=== PATIENT | female | born 1965 | race Caucasian/White ===

== ENCOUNTER → 2022-08-29 08:28 | Outpatient (BNVA) | payer OTHER, SELFPAY | PROVIDERS: PCP Family Medicine; Visit Provider Nurse Practitioner Family | DX: H53.122 Transient visual loss, left eye (principal); G43.909 Migraine, unspecified, not intractable, without status migrainosus; R51.9 Headache, unspecified; R42 Dizziness and giddiness; M54.2 Cervicalgia | CPT/HCPCS: 99202 ==

== ENCOUNTER 2022-10-17 08:06 | Outpatient (REF) | payer OTHER, SELFPAY ==
--- NOTE | ~2022-10-17 | CT_ITS ---
EXAMINATION: CT ANGIOGRAM HEAD CT ANGIOGRAM NECK CLINICAL INFORMATION: Transient visual loss in the left eye. COMPARISON: None available. TECHNIQUE: Initial noncontrast cost consultant imaging of the head and neck was performed. Noncontrast head CT was also performed. Test bolus sequences followed by intravenous administration 70 mL of Omnipaque 350. Helical imaging was performed in the axial plane from the aortic arch to the skull vertex. Delayed postcontrast imaging of the head was also performed. The data was processed at the generation engineering technologist's workstation for generation of MIP sequences. Angled MIPs and volume rendered reformatted images were also generated at an offline 3D workstation. Stenoses are assessed in accordance with NASCET criteria unless otherwise indicated. This CT examination was performed using dose optimization techniques as appropriate, variously including the following: *Automated exposure control. *Adjustment of mA and/or kV according to patient size (this includes techniques or standardized protocols for targeted exams where dose is matched to indication/reason for exam; i.e. extremities or head). *Use of iterative reconstruction technique. DLP: 2456 mGy-cm FINDINGS: CT Head: There is no evidence of acute intracranial hemorrhage or edematous territorial infarction. Cruz-white matter differentiation is preserved. There is no abnormal attenuation within the brain parenchyma. The ventricles are normal in morphology and size. No evidence for obstructive hydrocephalus. No abnormal mass effect or midline shift. No extra-axial fluid collections. No pathologic intra-axial enhancement or regional oligemia. No acute soft tissue or osseous abnormalities. Mild mucosal thickening of the paranasal sinuses. The mastoid air cells and middle ear cavities are clear. No demonstrated abnormalities of the orbits. CT Neck: The thyroid gland and remaining cervical soft tissues are within normal limits. Straightening of the normal cervical lordosis. Mild degenerative retrolisthesis of C3 on C4. Mild degenerative anterolisthesis of C4 on C5. Advanced degenerative disc disease at C6-C7. Mild to moderate degenerative disc disease at all additional cervical levels. Facet and uncovertebral joint arthropathy leads to osseous encroachment on the neural foramina from C3-C7. CT Upper Chest: Changes of prior median sternotomy. The visualized lung apices and upper mediastinum are within normal limits. Neck CTA: Aortic Arch: Normal contour and caliber with mild calcific atherosclerotic disease. Classic 3 vessel branching pattern of the aortic arch. Great Vessel Origins: No significant stenosis of the branch origins. Right Common Carotid Artery: No focal stenosis or occlusion. Cervical Right Internal Carotid Artery: Mild calcific atherosclerotic disease of the carotid bulb and proximal internal carotid artery without flow-limiting stenosis. Left Common Carotid Artery: No focal stenosis or occlusion. Cervical Left Internal Carotid Artery: Normal opacification without focal stenosis or occlusion. Cervical Right Vertebral Artery: Co-dominant. No focal stenosis or occlusion. Cervical Left Vertebral Artery: Co-dominant. No focal stenosis or occlusion. Brain CTA: Intracranial Internal Carotid Arteries: Mild calcific atherosclerotic disease of the intracranial internal carotid arteries without occlusion or flow-limiting stenosis. Normal opacification of the proximal ophthalmic arteries on limited evaluation. Right Anterior Cerebral Artery: Normal A1 segment. Normal opacification of the distal BALDEV segments. Left Anterior Cerebral Artery: Normal A1 segment. Normal opacification of the distal BALDEV segments. Anterior Communicating Artery: Normal. Right Middle Cerebral Artery: Normal M1 segment of the MCA without focal stenosis or occlusion. Normal arborization of the distal segments. Left Middle Cerebral Artery: Normal M1 segment of the MCA without focal stenosis or occlusion. Normal arborization of the distal segments. Right Vertebral Artery: Normal V4 segment. Normal opacification of the proximal segments of the posterior inferior cerebellar artery. Left Vertebral Artery: Normal V4 segment. Normal opacification of the proximal segments of the posterior inferior cerebellar artery. Basilar Artery: Normal without focal stenosis or occlusion. Normal appearance of the proximal superior cerebellar arteries. Right Posterior Cerebral Artery: Normal P1 segment. Normal opacification of the distal BARREL CAP SETTER segments. Left Posterior Cerebral Artery: Normal P1 segment. Normal opacification of the distal BARREL CAP SETTER segments. Normal opacification of the superior sagittal, straight, transverse, and sigmoid sinuses. CT/CT angio head neck IMPRESSION: 1. No evidence of acute intracranial hemorrhage or edematous territorial infarction. 2. CTA of the head and neck without proximal occlusion or flow-limiting stenosis.
[2022-10-17] MEDS: iohexoL 350 MG/ML 100 ML INFUS..BTL IV (09:29)
[2022-10-20 09:17] LABS: Creatinine POC 0.6 mg/dL (0.5-1.4); GFR POC > 60
== END 2022-10-17 08:07 | disposition home or self-care (01) ==
LOC: HO.CT 08:06
PROVIDERS: Visit Provider Nurse Practitioner Family
DX: R51.9 Headache, unspecified (principal); H53.122 Transient visual loss, left eye; E78.5 Hyperlipidemia, unspecified
CPT/HCPCS: 70496; 70498; 82565; Q9967

== ENCOUNTER 2022-12-08 10:06 | Outpatient (AMB) | payer OTHER, SELFPAY ==
--- NOTE | 2022-12-08 10:20 | A.OFFVIS_ITS ---
Intake Vital Signs 12/08/22 10:35 Height 5 ft 9 in Weight 179 lb 2 oz BMI 26.4 Pulse 56 Pulse Source Pulse Oximeter Pulse Oximetry (%) 98 Oxygen Delivery Method Room Air Intake Visit Reasons: 3m follow up Dizziness/Neck pain/Headaches-Conf Intake Note: Patient presents for 3 month follow up dizziness, neck pain and headaches. patient states my headaches are much better,Im going to physcial therapy and the vitamins given to me are helping. Web Applications Administrator Required: Yes Web Applications Administrator Name: pharmacist intern ID#[id number] Allergies No Known Allergies Allergy (Verified 12/08/22 10:41) Medication List - Last Reconciled 12/08/22 by GIRISH Galvez aspirin 81 mg PO DAILY atorvastatin 80 mg PO BEDTIME magnesium oxide 400 mg PO BEDTIME 30 days metoprolol succinate ER 25 mg PO DAILY ubrogepant (Ubrelvy) 50 - 100 mg (0.5 - 1 x 100 mg) PO ONCE PRN 30 days warfarin 5 mg PO DAILY HPI HPI Comments History of Present Illness Details 57-yr-old female presents for f/u visit. Pt denies any significant interval medical changes. Pt reports she is no longer having severe bothersome headaches, may have mild headache. She feels Magnesium is helpful. She never received Ubrelvy. She completed PT, which helped her neck pain. She continues to do the exercises. 10/17/22, CT/CT angio head neck IMPRESSION: 1. No evidence of acute intracranial he morrhage or edematous territorial infarction. 2. CTA of the head and neck without pro ximal occlusion or flow-limiting stenosis. [facility] Medical History (Updated 08/31/22 @ 20:38 by GIRISH Galvez) Subclinical hypothyroidism Chronic atrial fibrillation HLD (hyperlipidemia) Surgical History S/P MVR (mitral valve replacement) S/P AVR (aortic valve replacement) Hx of tonsillectomy H/O heart surgery Social History Alcohol intake: never Patient Tobacco Use Status: Never used Tobacco Review of Systems Const All systems reviewed & are unremarkable except as noted in HPI and below Physical Exam Vital Signs: Last Vital Signs Pulse 56 12/08/22 10:35 Pulse Ox 98 10/16/23 10:35 Oxygen Delivery Method Room Air 12/08/22 10:35 BMI result Body Mass Index 26.4 Const General: cooperative and no acute distress Orientation/consciousness: patient oriented x3 HEENT Head: Yes normocephalic Resp Effort & Inspection: normal respiratory effort and able to speak in complete sentences Neuro General: patient oriented x3, gait normal and CN's II-XI intact bilaterally Cognition (Neuro): normal cognition Motor exam (neuro): 5/5 motor strength present throughout Psych Appearance: grossly normal Mental Status: mental status grossly normal Speech and movement: Normal speech and movement present Affect: normal affect Attitude: cooperative Thought process: Normal thought process present Thought content: Normal thought content present Insight: Good insight present (Psych) Judgement: Good judgement present (Psych) Assessment & Plan Assessment & Plan (1) Migraine: Code(s): G43.909 - Migraine, unspecified, not intractable, without status migrainosus (2) Cervicalgia: Code(s): M54.2 - Cervicalgia (3) Transient visual loss of left eye: Code(s): H53.122 - Transient visual loss, left eye Plan 06/2020- Head and neck CT w/o- no acute abnormalities. 01/2022- c-spine XR- multilevel bone and disc degenerative changes- notably more so on right. 10/17/22: CTA head and neck- normal Continue PT exercises. Continue Magnesium 400mg qhs- may help with headaches and cervical muscle tightness. Again trial Ubrogepant 50-100mg at onset of migraine and/or neck pain, MR in 2 hrs (max 200mg per day). May adjunct w/ OTC Tylenol. ? f/u in 6 months or sooner prn. Medications: Refilled ubrogepant (Ubrelvy) take at onset of migraine, may repeat in 2hrs (may take w/ Tylenol) 50 - 100 mg (0.5 - 1 x 100 mg) PO ONCE 30 days PRN 16 tabs 3RF migraine headache Coding Level of Care Code Est Pt Level 4 (19840) Diagnoses Migraine G43.909 Cervicalgia M54.2 Transient visual loss of left eye H53.122
[2022-12-08 10:35] VITALS: PULSE 56; O2SAT 98; BMI 26.4
== END 2022-12-08 11:00 | disposition home or self-care (01) ==
PROVIDERS: PCP Family Medicine; Visit Provider Nurse Practitioner Family
DX: G43.909 Migraine, unspecified, not intractable, without status migrainosus (principal); M54.2 Cervicalgia; H53.122 Transient visual loss, left eye
CPT/HCPCS: 99214

== ENCOUNTER → 2022-12-08 10:06 | Outpatient (BNVA) | payer OTHER, SELFPAY | PROVIDERS: PCP Family Medicine; Visit Provider Nurse Practitioner Family | DX: G43.909 Migraine, unspecified, not intractable, without status migrainosus (principal); M54.2 Cervicalgia; H53.122 Transient visual loss, left eye | CPT/HCPCS: 99212 ==

== ENCOUNTER 2023-06-09 11:02 | Outpatient (AMB) | payer OTHER, SELFPAY ==
--- NOTE | 2023-06-09 11:04 | A.OFFVIS_ITS ---
Intake Vital Signs 06/09/23 11:07 Height 5 ft 9 in Weight 186 lb BMI 27.5 BP 118/74 Blood Pressure Location Rt brachial Position Sitting Pulse 82 Pulse Source Pulse Oximeter Pulse Oximetry (%) 99 Oxygen Delivery Method Room Air Intake Visit Reasons: 6m f/u for dizziness/CROWDER - LVM w/address Intake Note: Patient states she feels better than the first time she came here.she feels much better Allergies No Known Allergies Allergy (Verified 06/09/23 11:08) HPI HPI Comments History of Present Illness Details 57-yr-old female presents for f/u visit. Pt denies any significant interval medical changes. Pt states she is feeling better. She has been swimming, which helps. She may get tired, but takes short rests. Over time, her endurance is improving and needing less rests. She is trying to be active w/ her grandchildren. She is having occasional neck tightness. No headaches. Has not needed to try Ubrelvy yet. No dizziness. She thinks this was r/t her cardiac issues- she has cardiology f/u in June. She did see [facility] recently, who suggested pt stop Aspirin, she states she takes the ASA sometimes. States she has heard differing opinions on whether o not to take ASA- advised to discuss w/her instructor apparel manufacture. REPLACED BY [facility] Medical History (Updated 08/31/22 @ 20:38 by GIRISH Galvez) Subclinical hypothyroidism Chronic atrial fibrillation HLD (hyperlipidemia) Surgical History S/P MVR (mitral valve replacement) S/P AVR (aortic valve replacement) Hx of tonsillectomy H/O heart surgery Social History Alcohol intake: never Patient Tobacco Use Status: Never used Tobacco Physical Exam Vital Signs: Last Vital Signs Pulse 82 06/09/23 11:07 BP 118/74 06/09/23 11:07 Pulse Ox 99 06/09/23 11:07 Oxygen Delivery Method Room Air 06/09/23 11:07 BMI result Body Mass Index 27.5 Const General: cooperative and no acute distress Orientation/consciousness: patient oriented x3 Resp Effort & Inspection: normal respiratory effort and able to speak in complete sentences Neuro General: patient oriented x3 Cranial nerves: Yes CN's II-XII intact bilaterally Cognition (Neuro): normal cognition Psych Appearance: grossly normal Mental Status: mental status grossly normal Speech and movement: Normal speech and movement present Affect: normal affect Attitude: cooperative Assessment & Plan Assessment & Plan (1) Migraine: Code(s): G43.909 - Migraine, unspecified, not intractable, without status migrainosus (2) Dizziness: Code(s): R42 - Dizziness and giddiness Plan Continue regular physical activity. F/u w/ cardiology as scheduled- pt should discuss ASA tx in setting of Warfarin use, as taken together these can increase risk for bleeding. Continue Magnesium 400mg qhs- may help with headaches and cervical muscle tightness. When needed, trial Ubrogepant 50-100mg at onset of migraine and/or neck pain, MR in 2 hrs (max 200mg per day). May adjunct w/ OTC Tylenol. ? f/u in 6 months or sooner prn. Coding Level of Care Code Est Pt Level 3 (11074) Diagnoses Migraine G43.909 Dizziness R42
[2023-06-09 11:07] VITALS: BP 118/74; PULSE 82; O2SAT 99; BMI 27.5
== END 2023-06-09 11:42 | disposition home or self-care (01) ==
PROVIDERS: PCP Family Medicine; Visit Provider Nurse Practitioner Family
DX: G43.909 Migraine, unspecified, not intractable, without status migrainosus (principal); R42 Dizziness and giddiness
CPT/HCPCS: 99213

== ENCOUNTER → 2023-06-09 11:02 | Outpatient (BNVA) | payer OTHER, SELFPAY | PROVIDERS: PCP Family Medicine; Visit Provider Nurse Practitioner Family | DX: G43.909 Migraine, unspecified, not intractable, without status migrainosus (principal); R42 Dizziness and giddiness | CPT/HCPCS: 99212 ==

== ENCOUNTER 2023-12-28 11:26 | Outpatient (AMB) | payer OTHER, SELFPAY ==
[2023-12-28 11:36] VITALS: BP 108/62; PULSE 91; O2SAT 99
--- NOTE | 2023-12-28 11:36 | A.OFFVIS_ITS ---
Vital Signs 12/28/23 11:36 Height 5 ft 9 in BP 108/62 Blood Pressure Location Lt brachial Position Sitting Pulse 91 Pulse Source Pulse Oximeter Pulse Oximetry (%) 99 Oxygen Delivery Method Room Air Intake Visit Reasons: Follow up Conveyor Belt Installer Required: Yes Conveyor Belt Installer Name: cecily [id number] Accompanied by: Self / Same As Patient Allergies No Known Allergies Allergy (Verified 12/28/23 11:38) Medication List - Last Reconciled 12/28/23 by GIRISH Galvez atorvastatin 80 mg PO BEDTIME empagliflozin (Jardiance) 10 mg PO DAILY magnesium oxide 400 mg PO BEDTIME 30 days metoprolol succinate ER 25 mg PO DAILY omeprazole 20 mg PO DAILY sacubitril-valsartan 24-26 mg (Entresto) 1 tab PO BID torsemide 60 mg PO .weekly PRN warfarin 5 mg PO DAILY HPI Comments Details: 58-yr-old female presents for f/u visit. Pt denies any significant interval medical changes. Though, she has continued to f/u w/ cardiology who is optimizing her cardiac tx- now on entresto and torsemide. Pt states she is feeling better in terms of her headaches and neck. Has not needed to try Ubrelvy yet She is having occasional neck tightness, maybe triggered by laying in certain positions. She is compliant w/ Magnesium qhs. She is trying to walk regularly. Has seen urgent care for low back pain after waking up one day for increased low back pain/tenderness/muscle spasm. Was given cyclobenzaprine which did help reduce the muscle tightness but made her sleep for almost a full day. The pain is better, but she feels she has risks for low back spasms- such as bending over at work. Just started PT, and is doing the slow exercises they have taught her so far. She is now swimming very rarely- the pool she was going to, but for some reason it is more diffiuclt to breathe in the pool area during the warmer weather, but typically breathes better there in the colder weather. She is still active with her grandchildren- takes walks. She can be dizzy, feeling quite off-balance triggered by getting up. So now needs to sit up very slowly- and sit for 1-2 minutes before standing up. She can also feel tired. She attributes this to the torsemide and entresto tx. She also had been having leg cramps, so she reduced her torsemide dose from bid to qd, and now prn 2-3 times a week. States her liver lets her know when she needs to take the Torsemide- states her liver becomes heavy, firm to touch, and she has increased SOB on exertion. She weighs herself maybe weekly- previously did daily wts. The leg cramps have since resolved. [facility] Medical History (Updated 08/31/22 @ 20:38 by GIRISH Galvez) Subclinical hypothyroidism Chronic atrial fibrillation HLD (hyperlipidemia) Surgical History S/P MVR (mitral valve replacement) S/P AVR (aortic valve replacement) Hx of tonsillectomy H/O heart surgery Social History Alcohol intake: never Patient Tobacco Use Status: Never used Tobacco Physical Exam Vital Signs: Last Vital Signs Pulse 91 12/28/23 11:36 BP 108/62 12/28/23 11:36 Pulse Ox 99 12/28/23 11:36 Oxygen Delivery Method Room Air 12/28/23 11:36 Const General: cooperative and no acute distress Orientation/consciousness: patient oriented x3 Resp Effort & Inspection: normal respiratory effort and able to speak in complete sentences Neuro Other: Bilateral posterior cervical tightness. No palpable back tenderness. BLE MS 5/5 General: patient oriented x3 Cranial nerves: Yes CN's II-XII intact bilaterally Cognition (Neuro): normal cognition Motor exam (neuro): 5/5 motor strength present throughout Deep tendon reflexes (DTR's): Right patellar reflex intensity grade: 2+ and Left patellar reflex intensity grade: 2+ Psych Appearance: grossly normal Mental Status: mental status grossly normal Speech and movement: Normal speech and movement present Affect: normal affect Attitude: cooperative Assessment & Plan Assessment & Plan (1) Migraine: Code(s): G43.909 - Migraine, unspecified, not intractable, without status migrainosus Category: Medical (2) Dizziness: Code(s): R42 - Dizziness and giddiness Category: Medical Plan F/u w/ cardiology as scheduled- advised pt to update cardiology on how she is taking Torsemide prn. Advised to resume daily weights- discussed this is better method of assessing fluid gain than waiting for physical symptoms. Continue Magnesium 400mg qhs- headaches and cervical muscle tightness. When needed, trial Ubrogepant 50-100mg at onset of migraine and/or neck pain, MR in 2 hrs (max 200mg per day). May adjunct w/ OTC Tylenol. Continue PT. Continue regular physical activity as tolerated. Advsied to notify us if back pain/spasms reoccur. f/u in 6-12 months or sooner prn. Medications: Refilled magnesium oxide may hold for loose stools 400 mg PO BEDTIME 30 days 30 tabs 6RF ubrogepant (Ubrelvy) take at onset of migraine, may repeat in 2hrs (may take w/ Tylenol) 50 - 100 mg (0.5 - 1 x 100 mg) PO ONCE 30 days PRN 16 tabs 3RF migraine headache Scribe Plan - Not visible on output: Reviewed possible medication side effects, including but not limited to drowsiness, dizziness. Coding Level of Care Code Est Pt Level 4 (24504) Diagnoses Migraine G43.909 Dizziness R42
== END 2023-12-28 12:28 | disposition home or self-care (01) ==
PROVIDERS: PCP Family Medicine; Visit Provider Physician Assistant Medical
DX: G43.909 Migraine, unspecified, not intractable, without status migrainosus (principal); R42 Dizziness and giddiness
CPT/HCPCS: 99214

== ENCOUNTER → 2023-12-28 11:26 | Outpatient (BNVA) | payer OTHER, SELFPAY | PROVIDERS: PCP Family Medicine; Visit Provider Nurse Practitioner Family | DX: G43.909 Migraine, unspecified, not intractable, without status migrainosus (principal); R42 Dizziness and giddiness | CPT/HCPCS: 99212 ==